=== PATIENT | male | born 1985 | race Caucasian/White ===

== ENCOUNTER 2025-02-26 08:40 | Outpatient (CLI) | payer BC, SELFPAY | END 2025-02-26 08:41 | disposition home or self-care (01) | LOC: NFLDREF 03-01 18:53 | PROVIDERS: PCP Internal Medicine; Referring Provider Internal Medicine; Visit Provider Internal Medicine | DX: Z13.9 Encounter for screening, unspecified (principal) | CPT/HCPCS: 80053; 80061; 82043; 82570 ==

== ENCOUNTER 2025-03-13 10:37 | Outpatient (CLI) | payer BC, SELFPAY | END 2025-03-13 10:38 | disposition home or self-care (01) | LOC: NFLDREF 03-31 16:20 | PROVIDERS: PCP Internal Medicine; Referring Provider Internal Medicine; Visit Provider Family Medicine | DX: E11.9 Type 2 diabetes mellitus without complications (principal) | CPT/HCPCS: 86341 ==

== ENCOUNTER 2025-04-03 16:05 | Outpatient (CLI) | payer BC, SELFPAY | END 2025-04-03 16:06 | disposition home or self-care (01) | LOC: NFLDREF 16:06 | PROVIDERS: PCP Internal Medicine; Visit Provider Internal Medicine | DX: E10.9 Type 1 diabetes mellitus without complications (principal) | CPT/HCPCS: 80053 ==